=== PATIENT | female | born 1985 | race Caucasian/White ===

== ENCOUNTER → 2017-01-01 09:28 | Outpatient (CLI) | payer BC ==
[2014-05-26 10:47] VITALS: BMI 26.6
[~2017-01-01 09:28] MED LIST: HYDROCODON-ACE1 EAC9 PO; HYDROCODONE-APA1 TAB PO; IBUPROFEN600 MG PO; PRENATAL COMPLE1 TAB PO; ZOFRAN4 MG PO
== END | disposition home or self-care (01) ==
LOC: D.US 09:28
DX: E06.9 Thyroiditis, unspecified (principal)

== ENCOUNTER 2017-10-30 07:30 | Inpatient (IN) | payer OTHER ==
[~2017-10-30] VITALS: Ht 165.1 cm; Wt 76.2 kg
--- NOTE | ~2017-10-30 | PRO ---
PATIENT:CATRINA JOYNER MEDICAL RECORD: [id number] : 83 LOCATION:[id number] ADMISSION DATE: 10/31/17 PROCEDURE PERFORMED BY: EDIS BURTON MD DATE OF PROCEDURE: 11/01/2017 PROCEDURE: Epidural blood patch. INDICATIONS: Ms. Joyner is a 31-year-old female who had a on 10/31/2017, uncomplicated with 25 gauge needle times 1 attempt for a spinal anesthetic. The patient developed a worsening headache during the evening and presents a 10/10 this morning. The patient requesting reevaluation and possible epidural blood patch. Risks and benefits were explained including risk of infection, bleeding, damage to underlying structures. The patient consents and elects to proceed. DESCRIPTION OF PROCEDURE: After consent was performed, the patient was placed in sitting position, Betadine prepped and draped. Antecubital fossa was prepped as was the left wrist area, which had a fairly significant vein. Local anesthetic was used at the L4-L5 interspace, 1% lidocaine, skin wheal. A 17-gauge Tuohy needle was then introduced into the epidural space using loss of resistance technique. After the epidural space was located, 25 cc of autologous blood was obtained from the left wrist under sterile conditions with Betadine prep. Then, 25 mL of autologous blood was then injected into the epidural space via the 17-gauge Tuohy needle. The patient tolerated the procedure well. The patient said that she felt she had pressure in her back after the procedure. The patient's headache was from a 10/10 down to a 7/10 immediately post-injection. The patient is also receiving 1 liter of fluid. I related to the nurse and the patient that she can have Toradol injections as needed q.8 hours for her low back pain secondary to injection and a heating pad on low placed in that area. TRANSINT:[id number] Voice Confirmation ID: [id number] DOCUMENT ID: [id number] EDIS BURTON MD CC: [id number] DICTATION DATE: 11/01/17 1021 TECHNOLOGY OFFICER: 11/01/17 1242 ADM IN [facility] [address] [place] [address]
[2017-10-31] MEDS ORDERED: CLARITIN-D1 TAB.SR . PO (08:35)
[2017-10-31] MEDS ORDERED: PHENERGAN25 M1 PO (08:35)
[2017-10-31 08:36] VITALS: BP 121/72; Ht 165.1 cm; Wt 76.2 kg
[2017-10-31 10:39] LABS: HEMATOCRIT 32.8 % (36.0-48.0); HEMOGLOBIN 11.3 g/dL (12-16); MCH 31.4 pg (26.0-34.0); MCHC 34.5 g/dL (31.0-37.0); MCV 91.1 fL (80.0-100.0); MEAN PLATELET VOLUME 11.4 fL (7.4-10.4); RBC 3.6 10x6/uL (4.00-5.40); RDW 13.4 % (11.5-14.5); WBC 11.7 10x3/uL (4.8-10.8)
[2017-10-31 14:29] VITALS: BP 141/85
[2017-10-31 20:05] LABS: BASOPHILS 0.1 % (0-2); EOSINOPHILS 0.2 % (0-7); HEMATOCRIT 30.9 % (36.0-48.0); HEMOGLOBIN 10.5 g/dL (12-16); IMMATURE GRANULOCYTES 0.8 % (0-5); LYMPHOCYTES 13.6 % (15-50); MCV 91.2 fL (80.0-100.0); MEAN PLATELET VOLUME 11.4 fL (7.4-10.4); MONOCYTES 6.7 % (2-11); NEUTROPHILS 78.6 % (40-80); PLATELET COUNT 205 10x3/uL (130-400); RBC 3.39 10x6/uL (4.00-5.40); RDW 13.2 % (11.5-14.5)
[2017-10-31 20:06] LABS: WBC 15.9 10x3/uL (4.8-10.8)
[2017-10-31 20:20] VITALS: BP 112/60
[2017-11-01 00:15] VITALS: BP 126/70
[2017-11-01 04:25] VITALS: BP 109/66
[2017-11-01 06:12] LABS: BASOPHILS 0.1 % (0-2); EOSINOPHILS 0.5 % (0-7); HEMOGLOBIN 10.2 g/dL (12-16); IMMATURE GRANULOCYTES 0.6 % (0-5); LYMPHOCYTES 11.3 % (15-50); MCH 30.9 pg (26.0-34.0); MCV 90.9 fL (80.0-100.0); MEAN PLATELET VOLUME 11.3 fL (7.4-10.4); MONOCYTES 8.4 % (2-11); NEUTROPHILS 79.1 % (40-80); PLATELET COUNT 198 10x3/uL (130-400); RDW 13.3 % (11.5-14.5); WBC 14.3 10x3/uL (4.8-10.8)
[2017-11-01 07:26] LABS: RAPID PLASMA REAGIN Non Reactive (Non Reactive)
[2017-11-01 07:45] VITALS: BP 130/77
[2017-11-01 11:05] VITALS: BP 124/78
[2017-11-01 19:44] VITALS: BP 130/62
[2017-11-01 22:54] VITALS: BP 121/60
[2017-11-02 05:20] VITALS: BP 121/71
[2017-11-02 07:49] VITALS: BP 130/78
[2017-11-02] MEDS ORDERED: HYDROCODONE-APA1 TAB PO (09:04)
[2017-11-02] MEDS ORDERED: IBUPROFEN600 MG PO (09:05)
== END 2017-11-02 13:27 | disposition home or self-care (01) | DRG 766 ==
LOC: D.LD 10-31 07:00 → D.WS 10-31 07:00 → D.LD 10-31 09:00 → D.SDCHOLD 10-31 09:00 → D.WS 10-31 14:35 → D.LD 11-01 19:37
PROVIDERS: Obstetrics & Gynecology
PROC: 10D00Z1 Extraction of Products of Conception, Low, Open Approach (ICD-10-PCS; principal; 2017-10-31 09:00)
PROC: 3E0R3GC Introduction of Other Therapeutic Substance into Spinal Canal, Percutaneous Approach (ICD-10-PCS; 2017-11-01)
DX: O34.219 Maternal care for unspecified type scar from previous cesarean delivery (principal); Z3A.39 39 weeks gestation of pregnancy; Z37.0 Single live birth; O89.4 Spinal and epidural anesthesia-induced headache during the puerperium; O99.284 Endocrine, nutritional and metabolic diseases complicating childbirth; E06.3 Autoimmune thyroiditis

== ENCOUNTER → 2017-11-03 14:30 | Outpatient (CLI) | payer OTHER ==
[2017-11-03] VITALS (7 sets, daily range): BP systolic 129–141; BP diastolic 64–90; Ht 165.1 cm; Wt 71.8 kg
[~2017-11-03] VITALS: Ht 165.1 cm; Wt 71.8 kg
[~2017-11-03 14:30] MED LIST changes: +CLARITIN-D1 TAB.SR . PO; +PHENERGAN25 M1 PO
[2017-11-03 16:30] LABS: BASOPHILS 0.2 % (0-2); EOSINOPHILS 3.9 % (0-7); HEMATOCRIT 34.5 % (36.0-48.0); IMMATURE GRANULOCYTES 0.6 % (0-5); LYMPHOCYTES 23.7 % (15-50); MCH 31.7 pg (26.0-34.0); MCHC 34.8 g/dL (31.0-37.0); MCV 91.3 fL (80.0-100.0); MEAN PLATELET VOLUME 11.4 fL (7.4-10.4); NEUTROPHILS 64.6 % (40-80); RBC 3.78 10x6/uL (4.00-5.40); RDW 13.4 % (11.5-14.5)
[2017-11-03 16:39] LABS: PLATELET COUNT 246 10x3/uL (130-400)
== END | disposition home or self-care (01) ==
LOC: D.LDO 14:30
PROVIDERS: Obstetrics & Gynecology
DX: R51 Headache (principal)

== ENCOUNTER 2017-11-06 16:48 | Inpatient (IN) | payer OTHER ==
[~2017-11-06] VITALS: Ht 165.1 cm; Wt 74.4 kg
[2017-11-06 18:23] LABS: UDS - AMPHET NEGATIVE QUAL (NEGATIVE); UDS - BARB NEGATIVE QUAL (NEGATIVE); UDS - BENZO NEGATIVE QUAL (NEGATIVE); UDS - COCAINE NEGATIVE QUAL (NEGATIVE); UDS - OPIATE POSITIVE QUAL (NEGATIVE); UDS - PCP NEGATIVE QUAL (NEGATIVE); UDS - THC NEGATIVE QUAL (NEGATIVE)
[2017-11-06 18:35] LABS: BASOPHILS 0.3 % (0-2); EOSINOPHILS 3.3 % (0-7); HEMATOCRIT 34.8 % (36.0-48.0); HEMOGLOBIN 11.8 g/dL (12-16); IMMATURE GRANULOCYTES 0.4 % (0-5); LYMPHOCYTES 28.4 % (15-50); MCH 30.7 pg (26.0-34.0); MCHC 33.9 g/dL (31.0-37.0); MCV 90.6 fL (80.0-100.0); MEAN PLATELET VOLUME 10.8 fL (7.4-10.4); MONOCYTES 6.6 % (2-11); PLATELET COUNT 268 10x3/uL (130-400); RBC 3.84 10x6/uL (4.00-5.40); RDW 12.9 % (11.5-14.5)
[2017-11-06 18:38] LABS: APPEARANCE CLEAR (CLEAR); BILIRUBIN NEGATIVE (NEGATIVE); COLOR YELLOW (YELLOW); GLUCOSE NEGATIVE (NEGATIVE); KETONE NEGATIVE (NEGATIVE); NITRITE NEGATIVE (NEGATIVE); PROTEIN NEGATIVE (NEGATIVE); UROBILINOGEN NORMAL (NORMAL)
[2017-11-06 18:46] LABS: BACTERIA FEW /hpf (NONE SEEN); EPITHELIAL CELLS 0-5 /hpf (0-5); RED CELLS - URINE 0-5 /hpf (0-5); WHITE CELLS - URINE OCC /hpf (0-5)
[2017-11-06 18:53] LABS: CREATINE KINASE 70 UL (21-215)
[2017-11-06 18:56] LABS: ALBUMIN 2.9 g/dL (3.4-5.0); ALKALINE PHOSPHATASE 155 U/L (46-116); ALT (SGPT) 33 U/L (10-68); BILIRUBIN - TOTAL 0.46 mg/dL (0.2-1.3); CALC OSMOLALITY 282 mosm/kg (275-300); CALCIUM 8.3 mg/dL (8.5-10.1); CARBON DIOXIDE 23.5 mmol/L (21.0-32.0); CHLORIDE - SERUM 109 mmol/L (98-107); CREATININE - SERUM 0.6 mg/dL (0.6-1.3); GLUCOSE 78 mg/dL (74-106); POTASSIUM - SERUM 3.5 mmol/L (3.5-5.1); PROTEIN - SERUM 6.7 g/dL (6.4-8.2); SODIUM 143 mmol/L (136-145); UREA NITROGEN 11 mg/dL (7-18); eGFR NON AFRICAN AMERICAN > 90 mL/min (90-120)
[2017-11-06 18:59] LABS: TROPONIN-I < 0.017 ng/mL (0.000-0.060)
[2017-11-06 19:01] LABS: THYROID STIMULATING HORMONE 1.96 uIU/mL (0.36-3.74)
[2017-11-06 23:21] VITALS: BP 135/88; BMI 27.3
[2017-11-06 23:50] VITALS: BP 146/66
[2017-11-07] VITALS (10 sets, daily range): BP systolic 118–149; BP diastolic 65–77; Ht 165.1 cm; Wt 74.4 kg
[2017-11-07 09:10] LABS: BASOPHILS 0.6 % (0-2); EOSINOPHILS 3.3 % (0-7); HEMATOCRIT 40.2 % (36.0-48.0); HEMOGLOBIN 13.6 g/dL (12-16); IMMATURE GRANULOCYTES 0.3 % (0-5); LYMPHOCYTES 21.5 % (15-50); MCH 31.1 pg (26.0-34.0); MCHC 33.8 g/dL (31.0-37.0); MONOCYTES 6.9 % (2-11); NEUTROPHILS 67.4 % (40-80); PLATELET COUNT 290 10x3/uL (130-400); RBC 4.37 10x6/uL (4.00-5.40); RDW 12.8 % (11.5-14.5); WBC 6.7 10x3/uL (4.8-10.8)
[2017-11-07 09:43] LABS: T4 THYROXIN - FREE 0.95 ng/dL (0.76-1.46); THYROID STIMULATING HORMONE 1.51 uIU/mL (0.36-3.74)
== END 2017-11-07 16:15 | disposition home or self-care (01) | DRG 776 ==
LOC: D.ER 16:48 → D.LD 21:13 → D.EDHOLD 21:13 → D.LD 22:45
PROVIDERS: Nurse Practitioner Family; Obstetrics & Gynecology; Physician Assistant
DX: O14.95 Unspecified pre-eclampsia, complicating the puerperium (principal); J81.1 Chronic pulmonary edema; O90.5 Postpartum thyroiditis; O90.89 Other complications of the puerperium, not elsewhere classified; Z87.891 Personal history of nicotine dependence

== ENCOUNTER → 2017-11-11 13:20 | Outpatient (CLI) | payer OTHER ==
[2017-11-07 06:57] VITALS: BMI 27.3
== END | disposition home or self-care (01) ==
LOC: D.ECHO 13:20
DX: O90.3 Peripartum cardiomyopathy (principal)

== ENCOUNTER 2018-09-12 05:20 | Day surgery (SDC) | payer OTHER ==
[2018-09-10 15:52] LABS: BASOPHILS 0.2 % (0-2); HEMATOCRIT 44.3 % (36.0-48.0); HEMOGLOBIN 15.1 g/dL (12-16); IMMATURE GRANULOCYTES 0.2 % (0-5); LYMPHOCYTES 21.7 % (15-50); MCH 30.4 pg (26.0-34.0); MCHC 34.1 g/dL (31.0-37.0); MCV 89.1 fL (80.0-100.0); MEAN PLATELET VOLUME 11.8 fL (7.4-10.4); MONOCYTES 7.9 % (2-11); PLATELET COUNT 233 10x3/uL (130-400); RBC 4.97 10x6/uL (4.00-5.40); RDW 13.1 % (11.5-14.5); WBC 9.9 10x3/uL (4.8-10.8)
[~2018-09-12] VITALS: Ht 165.1 cm; Wt 68.9 kg
--- NOTE | ~2018-09-12 | OP ---
PATIENT NAME: CATRINA JOYNER MEDICAL RECORD: [id number] :83 LOCATION:.[facility] ADMISSION DATE: SURGEON: GEORGE PERSON MD DATE OF OPERATION: 09/12/2018 PREOPERATIVE DIAGNOSES: 1. Menorrhagia. 2. The patient desires permanent sterility. POSTOPERATIVE DIAGNOSES: 1. Menorrhagia. 2. The patient desires permanent sterility. PROCEDURES: 1. Laparoscopic tubal ligation via bipolar cautery: 2. Hysteroscopy. 3. NovaSure endometrial ablation. SURGEON: George Person MD ANESTHESIA: General endotracheal. INTRAVENOUS FLUIDS: Per anesthesia record. HYSTEROSCOPIC FLUID LOSS: Less than 50 cc of 0.9 normal saline. SPECIMENS: None. COMPLICATIONS: None apparent. FINDINGS: 1. Grossly normal-appearing fallopian tubes, ovaries and uterus. 2. Grossly normal-appearing endometrial canal. 3. Grossly normal-appearing external genitalia and cervix. PROCEDURE IN DETAIL: The patient was taken to the operating room where general anesthesia was achieved without any difficulty. The patient was then prepped and draped in normal sterile fashion in the dorsal lithotomy position in the [facility]. Following prep and drape, the bladder was drained of approximately 100 cc of clear yellow urine and a sponge stick placed in the vagina for uterine elevation. Attention was then turned to the umbilicus where a 5-mm incision was made at the inferior aspect and a 5-mm bladeless trocar was used to enter the intraperitoneal space under direct visualization using the laparoscope. The introducer was then removed and opening pressure was found to be less than 8 mmHg. The scope was then replaced and intraperitoneal placement was confirmed by direct visualization. At this point, survey was performed of the abdomen and pelvis, and a second 5-mm port was placed in the midline approximately 5 cm above the pubic symphysis. A skin incision was made and the trocar was placed under direct visualization of the laparoscope. The Gyrus bipolar cautery paddles were then used to completely desiccate a 5-6 cm portion of the fallopian tube in approximately the midsection. Good hemostasis was noted from both surgical sites. The patient was then desufflated and the skin incisions repaired with 3-0 Vicryl in an interrupted fashion. Attention was then turned to the vagina where a sponge stick was then removed and a Graves speculum was placed into the vagina. The cervix was grasped on its anterior lip OPERATIVE REPORT [id number] JOYNER,LACY with a single tooth tenaculum and dilated to approximately 6-mm without difficulty. The hysteroscope was then placed into the uterus and survey of the endometrial canal was performed. The NovaSure ablation was then performed. The cervix and endometrial cavity lengths were assessed and the numbers placed into the NovaSure machine. The NovaSure device was found to be in working order and was placed into the uterus and deployed slowly in a rocking back and forth method as per instructions. Following full deployment of the NovaSure device, the endocervical cap was then slid down into position. Vacuum precheck and pressure check were found to be adequate and a NovaSure cycle was begun. Following the end of the cycle, the cervical cap was then slid back and the NovaSure device was removed using the bow and arrow method. No bleeding was noted from the cervical os. The tenaculum was removed. The patient tolerated the procedure well, was transferred to postanesthesia recovery stable without incident. TRANSINT:[id number] Voice Confirmation ID: [id number] DOCUMENT ID: [id number] GEORGE PERSON MD CC: [id number] DICTATION DATE: 10/04/18 0643 DRYWALL APPLICATION SUPERVISOR: 10/04/18 1031 [facility] 09/12/18 [facility] [address] [place] [address]
[~2018-09-12 05:20] MED LIST changes: +BUSPIRONE HCL30 MG PO; +GABAPENTIN100 MG PO; +IBUPROFEN400 MG PO; +MICROGESTIN FE1 EACH PO; +ZOLOFT100 MG PO
[2018-09-12 06:19] VITALS: BP 119/71; Ht 165.1 cm; Wt 68.9 kg
[2018-09-12 06:35] LABS: HCG URINE NEGATIVE (NEGATIVE)
[2018-09-12] MEDS ORDERED: HYDROCODON-ACE1 EAC7 PO (11:33)
--- NOTE | 2018-09-12 13:10 | NUR ---
PATIENT HAS AMBULATED TO BATHROOM AND VOIDED LARGE AMOUNT IN TOILET WITHOUT DIFFICULTY. C/O CRAMPY PAIN IN ABDOMEN
--- NOTE | 2018-09-12 13:40 | NUR ---
TORADOL 30 MG IV GIVEN PER EMAR, PATIENT LYING IN BED, FATHER AT BEDSIDE
--- NOTE | 2018-09-12 14:05 | NUR ---
PATIENT STATES PAIN IS MUCH BETTER, RATES AT 4 ON 0-10 SCALE, DISCHARGED HOME VIA WHEELCHAIR TO PRIVATE VEHICLE WITH FATHER
== END 2018-09-12 14:05 | disposition home or self-care (01) ==
LOC: D.OPS 05:20 → D.PAN 07:30 → D.OPS 07:30 → D.PAN 08:45 → D.OPS 08:45
PROVIDERS: ATTEND Obstetrics & Gynecology
DX: N92.0 Excessive and frequent menstruation with regular cycle (principal); Z30.2 Encounter for sterilization

== ENCOUNTER → 2020-02-23 15:07 | Outpatient (CLI) | payer MEDICAID ==
[2018-09-12 06:19] VITALS: BMI 25.3
[~2020-02-23 15:07] MED LIST changes: +HYDROCODON-ACE1 EAC7 PO
== END | disposition home or self-care (01) ==
LOC: D.LAB 15:07
PROVIDERS: ATTEND Obstetrics & Gynecology
DX: Z03.818 Encounter for observation for suspected exposure to other biological agents ruled out (principal)